=== PATIENT | female | born 1990 | race American Indian/Alaskan Native ===

== ENCOUNTER 2021-11-24 07:29 | Day surgery (SDC) | payer OTHER ==
[2021-11-24] MEDS ORDERED: Lactated Ringers 1,000 ML IV SCH (07:30)
[2021-11-24] MEDS ORDERED: fentaNYL 250 MCG/5 ML SDV ONE (07:32)
[2021-11-24] MEDS ORDERED: Propofol 200 MG/20 ML SDV ONE (07:32)
[2021-11-24] MEDS ORDERED: Scopolamine 1.5 MG Transdermal Patch TRDERM PRN (07:53)
[2021-11-24] MEDS ORDERED: Morphine 4 MG/ML VIAL IVPUSH PRN ×2 (08:38→08:53)
[2021-11-24] MEDS ORDERED: HYDROmorphone 1 MG/ML Syringe IVPUSH PRN ×2 (08:38→08:53)
[2021-11-24] MEDS ORDERED: fentaNYL 50 MCG/ML SDV IVPUSH PRN ×2 (08:38→08:53)
[2021-11-24] MEDS ORDERED: Ondansetron 4 MG/2 ML SDV IVPUSH PRN ×2 (08:38→08:53)
[2021-11-24] MEDS ORDERED: Metoclopramide 10 MG/2 ML SDV IVPUSH PRN ×2 (08:38→08:53)
[2021-11-24] MEDS ORDERED: Albuterol 0.083% 2.5 MG/3 ML Neb Soln NEB PRN ×2 (08:38→08:53)
[2021-11-24] MEDS ORDERED: Naloxone 0.4 MG/ML SDV IVPUSH PRN ×2 (08:38→08:53)
[2021-11-24 08:48] LABS: CARBON DIOXIDE,CO2 26.7 mmol/L (21.0-32.0); POTASSIUM,K 3.5 mmol/L (3.5-5.1)
[2021-11-24] MEDS ORDERED: Famotidine 20 MG/2 ML SDV ONE (08:52)
[2021-11-24] MEDS ORDERED: Bupivacaine 0.25% 30 ML SDV ONE (09:06)
[2021-11-24] MEDS ORDERED: Methylene Blue 50 MG/10 ML Ampule ONE (09:06)
[2021-11-24] MEDS ORDERED: Ropivacaine 0.5% 5 MG/ML 30 ML SDV ONE (09:10)
[2021-11-24] MEDS ORDERED: Ketorolac 30 MG/ML SDV IVPUSH ONE (11:04)
[2021-11-24] MEDS ORDERED: Acetaminophen/oxyCODONE 325-5 MG Tab PO PRN (11:04)
== END 2021-11-24 12:40 | disposition home or self-care (01) ==
LOC: MW.SDS 07:29
PROVIDERS: ATTEND Obstetrics & Gynecology
DX: N88.2 Stricture and stenosis of cervix uteri (principal); N93.9 Abnormal uterine and vaginal bleeding, unspecified; D64.9 Anemia, unspecified; F32.A Depression, unspecified; G43.909 Migraine, unspecified, not intractable, without status migrainosus; F90.9 Attention-deficit hyperactivity disorder, unspecified type; K58.9 Irritable bowel syndrome, unspecified; G89.29 Other chronic pain; M54.2 Cervicalgia; Z98.890 Other specified postprocedural states; Z79.899 Other long term (current) drug therapy; Z88.0 Allergy status to penicillin; Z91.018 Allergy to other foods; Z88.5 Allergy status to narcotic agent
CPT/HCPCS: 36415; 49320; 80053; 81025; 85027; 86850; 86900; 86901; A9270; J2704; J2795; J3010; J3490; J7030; J7120; 00840; 64488